=== PATIENT | female | born 1945 | race Caucasian/White ===

== ENCOUNTER 2017-04-23 05:18 | Inpatient (IN) | payer MEDICARE, BC ==
[2017-04-23] MEDS ORDERED: Scopolamine 1.5 MG Transdermal Patch TOP SCH (05:40)
[2017-04-23] MEDS ORDERED: Gabapentin 300 MG Cap PO ONE (05:40)
[2017-04-23] MEDS: Lactated Ringers 1,000 ML IV SCH (06:16)
[2017-04-23] MEDS ORDERED: Povidone-Iodine 10% Soln 118.25 ML Bottle ONE (06:47)
[2017-04-23] MEDS ORDERED: Thrombin (Bovine) 5,000 Unit Kit ONE (06:47)
[2017-04-23] MEDS ORDERED: Glycopyrrolate 0.2 MG/ML 5 ML MDV ONE (07:16)
[2017-04-23] MEDS ORDERED: Neostigmine Methylsulfate 1 MG/ML 5 ML Syringe ONE (07:16)
[2017-04-23] MEDS ORDERED: Dexamethasone 4 MG/ML SDV ONE (07:16)
[2017-04-23] MEDS ORDERED: Ondansetron 4 MG/2 ML SDV ONE (07:16)
[2017-04-23] MEDS ORDERED: Succinylcholine 200 MG/10 ML MDV ONE (07:16)
[2017-04-23] MEDS ORDERED: Rocuronium 50 MG/5 ML Vial ONE (07:16)
[2017-04-23] MEDS ORDERED: ceFAZolin 2 GM in Sodium Chloride 0.9% 50 ML IV ONE (07:30)
[2017-04-23] MEDS ORDERED: ceFAZolin 2 GM in Premix Bag 1 BAG IV ONE (07:30)
[2017-04-23] MEDS ORDERED: Ketamine 500 MG/5 ML MDV IV ONE (07:45)
[2017-04-23] MEDS ORDERED: Ropivacaine 49.25 ML, Ketorolac 30 MG, EPINEPHrine 0.5 MG, cloNIDine 80 MCG, Sodium Chl... INJECT ONE ×5 (07:45)
[2017-04-23] MEDS ORDERED: Tranexamic Acid 740 MG in Sodium Chloride 0.9% 50 ML IV SCH (07:45)
[2017-04-23] MEDS ORDERED: Hydrocortisone Sodium Succinate 100 MG/2 ML SDV ONE (08:07)
[2017-04-23] MEDS ORDERED: Vancomycin 1 GM SDV ONE (08:35)
[2017-04-23] MEDS ORDERED: fentaNYL 100 MCG/2 ML SDV ONE (09:33)
[2017-04-23] MEDS ORDERED: Ondansetron 4 MG/2 ML SDV IVPUSH PRN (10:03)
[2017-04-23] MEDS ORDERED: Diazepam 5 MG Tab PO PRN (10:03)
[2017-04-23] MEDS ORDERED: Sennosides 8.6 MG Tab PO PRN (10:03)
[2017-04-23] MEDS ORDERED: Magnesium Hydroxide 400 MG/5 ML Susp 30 ML Cup PO PRN (10:03)
[2017-04-23] MEDS ORDERED: Zolpidem 5 MG Tab PO PRN (10:03)
[2017-04-23] MEDS ORDERED: Naloxone 0.4 MG/ML SDV IVPUSH PRN (10:03)
[2017-04-23] MEDS ORDERED: Aluminum Hydroxide/Magnesium Hydroxide/Simethicone Susp 30 ML Cup PO PRN (10:03)
[2017-04-23] MEDS ORDERED: hydrOXYzine HCl 100 MG/2 ML SDV IM ONE (10:09)
[2017-04-23] MEDS ORDERED: ceFAZolin 1 GM in Sodium Chloride 0.9% 50 ML IV SCH (10:15)
[2017-04-23] MEDS ORDERED: Acetaminophen 1,000 MG in Premix Bag 1 BAG IV ONE (10:30)
[2017-04-23] MEDS ORDERED: fentaNYL 100 MCG/2 ML SDV IVPUSH ONE (10:53)
[2017-04-23] MEDS ORDERED: Methocarbamol 500 MG Tab PO PRN ×2 (12:27→15:50)
[2017-04-23] MEDS: HYDROmorphone 1 MG/ML Syringe IVPUSH PRN ×2 (13:07→20:06)
[2017-04-23] MEDS: VERIFY SCOPOLAMINE PATCH TOP SCH (13:37)
--- NOTE | 2017-04-23 14:10 | PCM.PN ---
- General Info Date of Service: 04/23/17 - Review of Systems General: Reports: Weakness Musculoskeletal: Reports: Back Pain Systems Review Comment:: No acute events since surgery but patient remains fairly sedated. Occasional desaturations with shallow and infrequent breaths but does well when she is awakened. She reports moderate achy back pain that is tolerable at this time. No paresthesias reported. She does not feel short of breath at this time. Mouth is reported as very dry. - Patient Data Vitals - Most Recent: Last Vital Signs Temp 37.5 C 04/23/17 13:15 Pulse 67 04/23/17 13:15 Resp 16 04/23/17 13:15 BP 120/42 L 04/23/17 13:15 Pulse Ox 90 L 04/23/17 13:15 Weight - Most Recent: 73.482 kg I&O - Last 24 Hours: Intake & Output 04/22/17 04/23/17 04/23/17 22:59 06:59 14:59 Intake Total 75 Output Total 200 Balance -125 Lab Results Last 24 Hours: Laboratory Results - last 24 hr 04/23/17 Range/Units 05:53 Blood Type A POSITIVE Gel Antibody Screen Negative Med Orders - Current: Current Medications Al Hydroxide/Mg Hydroxide (Mag-Al Plus) 30 ml PO Q4H PRN PRN Reason: Indigestion Aspirin (Halfprin) 81 mg PO DAILY RON Atenolol (Tenormin) 25 mg PO DAILY RON Cholecalciferol (Vitamin D3) 1,000 units PO DAILY RON Diazepam (Valium.) 5 mg PO Q6H PRN PRN Reason: Spasms Fish Oil (Fish Oil) 1 gm PO BID RON Fluoxetine HCl (Prozac) 10 mg PO DAILY RON Gabapentin (Neurontin) 600 mg PO DAILY RON Hydromorphone HCl (Dilaudid) 1 mg IVPUSH Q2H PRN PRN Reason: Pain Stop: 04/24/17 10:03 Last Admin: 04/23/17 13:07 Dose: 1 mg Lactated Ringer's (Ringers, Lactated) 1,000 mls @ 0 mls/hr IV ASDIRECTED RON PRN Reason: KVO Last Admin: 04/23/17 06:16 Dose: 100 mls/hr Cefazolin Sodium/Dextrose 1 gm (/ Premix) 50 mls @ 100 mls/hr IV Q8H RON Stop: 04/24/17 06:59 Magnesium Hydroxide (Milk Of Magnesia) 30 ml PO BID PRN PRN Reason: Constipation Methocarbamol (Robaxin) 500 mg PO ASDIRECTED PRN PRN Reason: Pain Naloxone HCl (Narcan) 0.2 mg IVPUSH ONETIME PRN PRN Reason: Oversedation Stop: 04/23/17 23:00 Verify Scopolamine (Patch) 0 each TOP DAILY [facility] Last Admin: 04/23/17 13:37 Dose: Not Given Ondansetron HCl (Zofran) 8 mg IVPUSH Q4H PRN PRN Reason: Nausea/Vomiting Oxycodone HCl (Oxycodone) 10 mg PO Q4H PRN PRN Reason: Pain Stop: 04/24/17 10:03 Oxycodone/Acetaminophen (Percocet 325-5 Mg) 2 tab PO Q4H PRN PRN Reason: Pain Pantoprazole Sodium (Protonix) 40 mg PO ACBREAKFAST [facility] Rosuvastatin Calcium (Crestor) 20 mg PO BEDTIME RON Scopolamine (Transderm-Scop) 1.5 mg TOP Q72H [facility] Stop: 04/26/17 03:40 Last Admin: 04/23/17 05:59 Dose: 1.5 mg Senna (Senna) 8.6 mg PO BID [facility] Valacyclovir HCl (Valtrex) 500 mg PO DAILY [facility] Zolpidem Tartrate (Ambien) 5 mg PO BEDTIME PRN PRN Reason: Sleep Discontinued Medications Ropivacaine 49.25 ml/Ketorolac Tromethamine 30 mg/Epinephrine HCl 0.5 mg/ Clonidine HCl 80 mcg/ Sodium Chloride 48.45 ml 0 ml INJECT ONETIME ONE Stop: 04/23/17 07:46 Last Admin: 04/23/17 08:24 Dose: 50 ml Dexamethasone (Dexamethasone) Confirm Administered Dose 4 mg .ROUTE .STK-MED ONE Stop: 04/23/17 07:17 Fentanyl (Sublimaze) Confirm Administered Dose 100 mcg .ROUTE .STK-MED ONE Stop: 04/23/17 09:34 Fentanyl (Sublimaze) 50 mcg IVPUSH ONETIME ONE Stop: 04/23/17 10:54 Last Admin: 04/23/17 10:56 Dose: 50 mcg Fentanyl Citrate (Fentanyl) Confirm Administered Dose 500 mcg .ROUTE .STK-MED ONE Stop: 04/23/17 07:17 Gabapentin (Neurontin) 300 mg PO ONETIME ONE Stop: 04/23/17 05:41 Last Admin: 04/23/17 05:58 Dose: 300 mg Glycopyrrolate (Robinul) Confirm Administered Dose 1 mg .ROUTE .STK-MED ONE Stop: 04/23/17 07:17 Hydrocortisone Sodium Succinate (Solu-Cortef) Confirm Administered Dose 100 mg .ROUTE .STK-MED ONE Stop: 04/23/17 08:08 Hydroxyzine HCl (Vistaril) 75 mg IM ONETIME ONE Stop: 04/23/17 10:10 Last Admin: 04/23/17 10:17 Dose: 75 mg Tranexamic Acid 740 mg/ Sodium (Chloride) 57.4 mls @ 229.6 mls/hr IV Q3H [facility] Stop: 04/23/17 10:59 Last Admin: 04/23/17 07:55 Dose: 229.6 mls/hr Ketamine HCl 100 mg/ Sodium (Chloride) 100 mls @ 15 mls/hr IV ASDIRECTED [facility] Stop: 04/23/17 10:00 Cefazolin Sodium 2 gm/ Sodium (Chloride) 50 mls @ 100 mls/hr IV ONETIME ONE Stop: 04/23/17 07:59 Last Admin: 04/23/17 07:15 Dose: 100 mls/hr Propofol (Diprivan 100 Ml) Confirm Administered Dose 100 mls @ as directed .ROUTE .STK-MED ONE Stop: 04/23/17 07:17 Acetaminophen 1,000 mg/ Premix 100 mls @ 400 mls/hr IV NOW ONE Stop: 04/23/17 10:44 Last Admin: 04/23/17 10:32 Dose: 400 mls/hr Cefazolin Sodium 1 gm/ Sodium (Chloride) 50 mls @ 100 mls/hr IV Q8H [facility] Stop: 04/24/17 02:44 Ketamine HCl (Ketalar) 25 mg IV ONETIME ONE Stop: 04/23/17 07:46 Last Admin: 04/23/17 12:18 Dose: Not Given Neostigmine Methylsulfate (Neostigmine) Confirm Administered Dose 5 mg .ROUTE .STK-MED ONE Stop: 04/23/17 07:17 Ondansetron HCl (Zofran) Confirm Administered Dose 4 mg .ROUTE .STK-MED ONE Stop: 04/23/17 07:17 Povidone Iodine (Betadine 10% Soln) Confirm Administered Dose 1 ml .ROUTE .STK- MED ONE Stop: 04/23/17 06:48 Last Admin: 04/23/17 08:17 Dose: 1 ml Rocuronium [place] (Zemuron) Confirm Administered Dose 50 mg .ROUTE .STK-MED ONE Stop: 04/23/17 07:17 Senna (Senna) 8.6 mg PO BID PRN PRN Reason: Constipation Succinylcholine Chloride (Quelicin) Confirm Administered Dose 200 mg .ROUTE .STK -MED ONE Stop: 04/23/17 07:17 Thrombin (Thrombin-Jmi) Confirm Administered Dose 15,000 unit .ROUTE .STK-MED ONE Stop: 04/23/17 06:48 Last Admin: 04/23/17 08:17 Dose: 10,000 unit Vancomycin HCl (Vancomycin) Confirm Administered Dose 1 gm .ROUTE .STK-MED ONE Stop: 04/23/17 08:36 Last Admin: 04/23/17 08:38 Dose: 1 gm - Exam Quality Assessment: Supplemental Oxygen General: Alert, Cooperative, No Acute Distress, Sedated Lungs: Clear to Auscultation, Normal Respiratory Effort Cardiovascular: Regular Rate, Regular Rhythm, Murmurs GI/Abdominal Exam: Normal Bowel Sounds, Soft, Non-Tender, No Distention Extremities: No Pedal Edema. No: Increased Warmth Skin: Warm, Dry Psy/Mental Status: Alert, Normal Affect - Problem List & Annotations (1) Spondylolisthesis at L4-L5 level SNOMED Code(s): 278553595 Code(s): M43.16 - SPONDYLOLISTHESIS, LUMBAR REGION Status: Acute Current Visit: No (2) Spinal stenosis of lumbar region with neurogenic claudication SNOMED Code(s): 19008957 Code(s): M48.062 - SPINAL STENOSIS, LUMBAR REGION WITH NEUROGENIC CLAUDICATION Status: Acute Current Visit: No (3) Essential hypertension SNOMED Code(s): 95158856 Code(s): I10 - ESSENTIAL (PRIMARY) HYPERTENSION Status: Chronic Current Visit: Yes - Problem List Review Problem List Initiated/Reviewed/Updated: Yes - Plan Plan:: ASSESSMENT AND PLAN Spinal stenosis with neurogenic claudication - status post TLIF at L4/L5. Doing well postoperatively other than some sedation. -Postoperative cares per orthopedic team Essential hypertension - blood pressure control acceptable at this time. -Continue home medications Jt Ball M.D.
[2017-04-23] MEDS: ceFAZolin 1 GM in Premix Bag 1 BAG IV SCH ×2 (15:24→22:37)
--- NOTE | 2017-04-23 15:44 | OR ---
DATE OF PROCEDURE: 04/23/2017 PREOPERATIVE DIAGNOSES: 1. Lumbar spondylolisthesis, L4-L5. 2. Lumbar central stenosis, L4-L5. 3. Lumbar right foraminal stenosis, L4-L5. 4. Lumbar radiculopathy, L4-L5. POSTOPERATIVE DIAGNOSES: 1. Lumbar spondylolisthesis, L4-L5. 2. Lumbar central stenosis, L4-L5. 3. Lumbar right foraminal stenosis, L4-L5. 4. Lumbar radiculopathy, L4-L5. PROCEDURES: 1. Transforaminal lumbar interbody fusion with posterolateral fusion, L4-L5. 2. Interbody device placement, L4-L5. 3. Laminectomy, required an additional decompression at L4-L5. 4. Segmental instrumentation, L4-L5. 5. Use of Globus Signify allograft in combination with an autograft from laminectomy applied to right posterolateral gutter and right facet. COAL DRIER OPERATOR: COLEMAN Torres. Physician perinatal breastfeeding assistant, Carleen Edwards NP, played an essential role in assisting in this case, helping to position the patient, retract structures as needed, as well as suturing and cutting sutures as indicated. Her presence improved patient's safety and decreased operative time. ANESTHESIA: General endotracheal intubation. FLUID: Lactated Ringer's solution. ESTIMATED BLOOD LOSS: 50 mL. COMPLICATIONS: None. SPECIMEN: None. DISCHARGE DISPOSITION: Stable to PACU. INDICATIONS: The patient was seen preoperatively in the clinic. She had failed nonoperative treatment. Preoperative imaging confirmed the above-mentioned diagnosis. Risks and benefits of the procedure were explained to the patient. Informed consent was obtained. DETAILS OF PROCEDURE: The patient was seen preoperatively by myself and the Anesthesia staff in the preoperative holding area where the operative site was marked. She was brought to the operative suite by the Anesthesia staff where general anesthesia was administered. Neuromonitoring leads were placed and normal at baseline. A sterile Chairez catheter was placed. The operating microscope was draped in a sterile manner. The fluoroscopy unit was draped in a sterile manner. The patient was then prepped and draped and was then flipped into a prone position on a Yonny table. All extremities were found to be well padded. The patient was then prepped and draped in a sterile manner. Time-out was called identifying the correct patient, correct procedure, the correct site, and antibiotics had begun within the appropriate period of time. Lateral fluoroscopy was used to identify the pedicles of L4 and L5. Midline incision was made over the spinous processes of L4 and L5 and carried down to the deep fascia. Bleeding during the case was controlled with Bovie electrocautery, bipolar electrocautery, and Aquamantys 5.0 unit. Cerebellar was used for initial retraction. Dissection was then carried out with Bovie and Pineda elevator over the spinous processes, facets, pars, and transverse processes of L4 and L5. Versa-Trac blades were then inserted for retraction. Soft tissue was then removed. Right L4 and L5 screws were placed followed by left. This was done by decorticating the lateral aspect of the facet and then at the midline of the transverse process, drilling down to find the pedicle starting point followed by PediGuard to find the tract, followed by fluoroscopy, followed by pedicle probe placement, followed by a tap, followed by pedicle probe placement to confirm good placement followed by screws. All screws were 6.5 x 45 mm Globus Creo AMP. The left side was done followed by right side. We then tested the screws. One screw tested 16, the remainder tested about 21, all within acceptable limits. I then proceeded with my right inferior facetectomy of L4 and then superior facetectomy of L5 on the right. I then removed enough flavum. I did identify the exiting L4 root, which was protected at all times with a Graford #4 elevator. I found the disk space and then incised the annulus with a 15 blade followed by removal of the disk with pituitary straight and upgoing and downgoing curettes as well as upgoing pituitary for disk space preparation and endplate preparation. After this had been accomplished, I then inserted my bone funnel and applied approximately 5 mL of Signify anteriorly. I then inserted my implant which was a Rise 8 x 22, 11 to 17 mm, 15 degree lordotic implant and then expanded this under direct visualization of fluoroscopy. After this had been accomplished and torqued out, I then concentrated on my laminectomy. I removed the inferior spinous process of L4 and the superior spinous process of L5. The laminectomy defect from previous surgeries had been overgrown, so we took a great deal of care not to create a durotomy. No durotomy was encountered during the procedure. The dura was protected with cottonoid. I removed bone from that area to perform the laminectomy and then carefully removed the ligamentum flavum to decompress. After adequate decompression had been accomplished, I then applied a 35 mm annie on the left and 40 mm annie on the right and then set screws and torqued into specifications. We then irrigated with 3 L Betadine irrigation. I then decorticated the transverse processes on the left at L4 and L5 as well as decorticated the facets and packed a mixture of the Signify allograft as well as autograft from laminectomy which had been ground through [employer] bone mill into the facet as well as the posterolateral gutter on the left. After this had been accomplished, I applied half a gram of vancomycin below and above the fascia as well as Gelfoam powder. We then closed with #1 Stratafix, followed by another liter of irrigation, followed by #6 Stratafix, and then 3-0 Stratafix followed by sterile dressing. The patient was then flipped into her hospital bed in supine position. Neuromonitoring leads were placed and they were normal throughout the procedure. The patient was allowed to awaken from general anesthesia and taken to the PACU in stable condition. Evens Graham DO /[id number]
[2017-04-23] MEDS: Sennosides 8.6 MG Tab PO SCH (20:26)
[2017-04-23] MEDS: Rosuvastatin 10 MG Tab PO SCH (20:26)
[2017-04-23] MEDS: Fish Oil/Omega-3 Fatty Acids 1 Gm Cap PO SCH (20:36)
[2017-04-23] MEDS ORDERED: Non-Formulary Medication 1 Each (Omeprazole [Omeprazole] 20 MG) PO SCH (21:00)
[2017-04-23] MEDS ORDERED: Non-Formulary Medication 1 Each (Rosuvastatin [Crestor] 20 MG) PO SCH (21:00)
[2017-04-24] MEDS: oxyCODONE 5 MG Tab PO PRN ×2 (03:10→08:32)
[2017-04-24] MEDS: Lactated Ringers 1,000 ML IV SCH (04:02)
[2017-04-24] MEDS: ceFAZolin 1 GM in Premix Bag 1 BAG IV SCH (06:46)
[2017-04-24] MEDS: Pantoprazole 40 MG Tab.CR PO SCH (08:31)
[2017-04-24] MEDS ORDERED: Non-Formulary Medication 1 Each (Cholecalciferol (Vitamin D3) [Vitamin D3] 1,000 UNIT) PO SCH (09:00)
[2017-04-24] MEDS ORDERED: Non-Formulary Medication 1 Each (Gabapentin [Neurontin] 600 MG) PO SCH (09:00)
--- NOTE | 2017-04-24 10:37 | PCM.PN ---
- General Info Date of Service: 04/24/17 Functional Status: Reports: Pain Controlled - Review of Systems General: Reports: No Symptoms HEENT: Reports: No Symptoms Pulmonary: Reports: No Symptoms Cardiovascular: Reports: No Symptoms Gastrointestinal: Reports: No Symptoms, Nausea Musculoskeletal: Reports: Back Pain Skin: Reports: No Symptoms Neurological: Reports: No Symptoms Psychiatric: Reports: No Symptoms - Patient Data Vitals - Most Recent: Last Vital Signs Temp 97.8 F 04/24/17 07:42 Pulse 68 04/24/17 07:42 Resp 16 04/24/17 07:42 BP 134/46 L 04/24/17 07:42 Pulse Ox 97 04/24/17 07:42 Weight - Most Recent: 162 lb I&O - Last 24 Hours: Intake & Output 04/23/17 04/24/17 04/24/17 22:59 06:59 14:59 Intake Total 335 265 3538 Output Total 815 1250 Balance -348 360 158 Med Orders - Current: Current Medications Al Hydroxide/Mg Hydroxide (Mag-Al Plus) 30 ml PO Q4H PRN PRN Reason: Indigestion Aspirin (Halfprin) 81 mg PO DAILY [facility] Atenolol (Tenormin) 25 mg PO DAILY [facility] Cholecalciferol (Vitamin D3) 1,000 units PO DAILY RON Diazepam (Valium.) 5 mg PO Q6H PRN PRN Reason: Spasms Fish Oil (Fish Oil) 1 gm PO BID [facility] Last Admin: 04/23/17 20:36 Dose: Not Given Fluoxetine HCl (Prozac) 10 mg PO DAILY [facility] Gabapentin (Neurontin) 600 mg PO DAILY [facility] Lactated Ringer's (Ringers, Lactated) 1,000 mls @ 0 mls/hr IV ASDIRECTED RON PRN Reason: KVO Last Admin: 04/24/17 04:02 Dose: 100 mls/hr Magnesium Hydroxide (Milk Of Magnesia) 30 ml PO BID PRN PRN Reason: Constipation Methocarbamol (Robaxin) 1,000 mg PO BEDTIME PRN PRN Reason: Pain Verify Scopolamine (Patch) 0 each TOP DAILY [facility] Last Admin: 04/23/17 13:37 Dose: Not Given Ondansetron HCl (Zofran) 8 mg IVPUSH Q4H PRN PRN Reason: Nausea/Vomiting Oxycodone/Acetaminophen (Percocet 325-5 Mg) 2 tab PO Q4H PRN PRN Reason: Pain Pantoprazole Sodium (Protonix) 40 mg PO ACBREAKFAST [facility] Last Admin: 04/24/17 08:31 Dose: 40 mg Rosuvastatin Calcium (Crestor) 20 mg PO BEDTIME [facility] Last Admin: 04/23/17 20:26 Dose: 20 mg Scopolamine (Transderm-Scop) 1.5 mg TOP Q72H [facility] Stop: 04/26/17 03:40 Last Admin: 04/23/17 05:59 Dose: 1.5 mg Senna (Senna) 8.6 mg PO BID [facility] Last Admin: 04/23/17 20:26 Dose: 8.6 mg Valacyclovir HCl (Valtrex) 500 mg PO DAILY [facility] Zolpidem Tartrate (Ambien) 5 mg PO BEDTIME PRN PRN Reason: Sleep Discontinued Medications Ropivacaine 49.25 ml/Ketorolac Tromethamine 30 mg/Epinephrine HCl 0.5 mg/ Clonidine HCl 80 mcg/ Sodium Chloride 48.45 ml 0 ml INJECT ONETIME ONE Stop: 04/23/17 07:46 Last Admin: 04/23/17 08:24 Dose: 50 ml Dexamethasone (Dexamethasone) Confirm Administered Dose 4 mg .ROUTE .STK-MED ONE Stop: 04/23/17 07:17 Fentanyl (Sublimaze) Confirm Administered Dose 100 mcg .ROUTE .STK-MED ONE Stop: 04/23/17 09:34 Fentanyl (Sublimaze) 50 mcg IVPUSH ONETIME ONE Stop: 04/23/17 10:54 Last Admin: 04/23/17 10:56 Dose: 50 mcg Fentanyl Citrate (Fentanyl) Confirm Administered Dose 500 mcg .ROUTE .STK-MED ONE Stop: 04/23/17 07:17 Gabapentin (Neurontin) 300 mg PO ONETIME ONE Stop: 04/23/17 05:41 Last Admin: 04/23/17 05:58 Dose: 300 mg Glycopyrrolate (Robinul) Confirm Administered Dose 1 mg .ROUTE .STK-MED ONE Stop: 04/23/17 07:17 Hydrocortisone Sodium Succinate (Solu-Cortef) Confirm Administered Dose 100 mg .ROUTE .STK-MED ONE Stop: 04/23/17 08:08 Hydromorphone HCl (Dilaudid) 1 mg IVPUSH Q2H PRN PRN Reason: Pain Stop: 04/24/17 10:03 Last Admin: 04/23/17 20:06 Dose: 1 mg Hydroxyzine HCl (Vistaril) 75 mg IM ONETIME ONE Stop: 04/23/17 10:10 Last Admin: 04/23/17 10:17 Dose: 75 mg Tranexamic Acid 740 mg/ Sodium (Chloride) 57.4 mls @ 229.6 mls/hr IV Q3H [facility] Stop: 04/23/17 10:59 Last Admin: 04/23/17 07:55 Dose: 229.6 mls/hr Ketamine HCl 100 mg/ Sodium (Chloride) 100 mls @ 15 mls/hr IV ASDIRECTED [facility] Stop: 04/23/17 10:00 Cefazolin Sodium 2 gm/ Sodium (Chloride) 50 mls @ 100 mls/hr IV ONETIME ONE Stop: 04/23/17 07:59 Last Admin: 04/23/17 07:15 Dose: 100 mls/hr Propofol (Diprivan 100 Ml) Confirm Administered Dose 100 mls @ as directed .ROUTE .STK-MED ONE Stop: 04/23/17 07:17 Acetaminophen 1,000 mg/ Premix 100 mls @ 400 mls/hr IV NOW ONE Stop: 04/23/17 10:44 Last Admin: 04/23/17 10:32 Dose: 400 mls/hr Cefazolin Sodium 1 gm/ Sodium (Chloride) 50 mls @ 100 mls/hr IV Q8H [facility] Stop: 04/24/17 02:44 Last Admin: 04/23/17 16:31 Dose: Not Given Cefazolin Sodium/Dextrose 1 gm (/ Premix) 50 mls @ 100 mls/hr IV Q8H [facility] Stop: 04/24/17 06:59 Last Admin: 04/24/17 06:46 Dose: 100 mls/hr Ketamine HCl (Ketalar) 25 mg IV ONETIME ONE Stop: 04/23/17 07:46 Last Admin: 04/23/17 12:18 Dose: Not Given Naloxone HCl (Narcan) 0.2 mg IVPUSH ONETIME PRN PRN Reason: Oversedation Stop: 04/23/17 23:00 Neostigmine Methylsulfate (Neostigmine) Confirm Administered Dose 5 mg .ROUTE .STK-MED ONE Stop: 04/23/17 07:17 Ondansetron HCl (Zofran) Confirm Administered Dose 4 mg .ROUTE .STK-MED ONE Stop: 04/23/17 07:17 Oxycodone HCl (Oxycodone) 10 mg PO Q4H PRN PRN Reason: Pain Stop: 04/24/17 10:03 Last Admin: 04/24/17 08:32 Dose: 10 mg Povidone Iodine (Betadine 10% Soln) Confirm Administered Dose 1 ml .ROUTE .STK- MED ONE Stop: 04/23/17 06:48 Last Admin: 04/23/17 08:17 Dose: 1 ml Rocuronium [place] (Zemuron) Confirm Administered Dose 50 mg .ROUTE .STK-MED ONE Stop: 04/23/17 07:17 Senna (Senna) 8.6 mg PO BID PRN PRN Reason: Constipation Succinylcholine Chloride (Quelicin) Confirm Administered Dose 200 mg .ROUTE .STK -MED ONE Stop: 04/23/17 07:17 Thrombin (Thrombin-Jmi) Confirm Administered Dose 15,000 unit .ROUTE .STK-MED ONE Stop: 04/23/17 06:48 Last Admin: 04/23/17 08:17 Dose: 10,000 unit Vancomycin HCl (Vancomycin) Confirm Administered Dose 1 gm .ROUTE .STK-MED ONE Stop: 04/23/17 08:36 Last Admin: 04/23/17 08:38 Dose: 1 gm - Exam General: Alert, Oriented HEENT: Pupils Equal, Pupils Reactive, EOMI, Mucous Membr. Moist/[place] Neck: Supple Lungs: Normal Respiratory Effort Skin: Warm, Dry, Intact Wound/Incisions: Healing Well, Dressing Dry and Intact, No Drainage Neurological: No New Focal Deficit Psy/Mental Status: Alert, Normal Affect, Normal Mood - Problem List Review Problem List Initiated/Reviewed/Updated: Yes - My Orders Last 24 Hours: My Active Orders 04/23/17 10:00 Non-Formulary Medication [NF Drug] 0 each TOP DAILY - Plan Plan:: A: POD TLIF L4-5 P: pt/ot/pain control. walked 50' this am. will most likely dc to home tomorrow. rx for walker written.
[2017-04-24] MEDS: FLUoxetine 10 MG Cap PO SCH (11:10)
[2017-04-24] MEDS: Fish Oil/Omega-3 Fatty Acids 1 Gm Cap PO SCH ×3 (11:10→22:08)
[2017-04-24] MEDS: Gabapentin 300 MG Cap PO SCH (11:10)
[2017-04-24] MEDS: Atenolol 25 MG Tab PO SCH (11:11)
[2017-04-24] MEDS: Aspirin 81 MG Tab.EC PO SCH (11:11)
[2017-04-24] MEDS: Sennosides 8.6 MG Tab PO SCH ×2 (11:12→20:49)
[2017-04-24] MEDS: Cholecalciferol (Vitamin D3) 1,000 Unit Tab PO SCH (11:12)
[2017-04-24] MEDS: valACYclovir 1,000 MG Tab PO SCH (11:22)
[2017-04-24] MEDS: VERIFY SCOPOLAMINE PATCH TOP SCH (12:22)
[2017-04-24] MEDS: Acetaminophen/oxyCODONE 325-5 MG Tab PO PRN ×3 (14:04→23:02)
[2017-04-24] MEDS: Rosuvastatin 10 MG Tab PO SCH (20:48)
[2017-04-25] MEDS ORDERED: Acetaminophen/oxyCODONE 325-5 MG Tab PO SCH
[2017-04-25] MEDS: Acetaminophen/oxyCODONE 325-5 MG Tab PO PRN ×4 (03:55→17:03)
--- NOTE | 2017-04-25 08:00 | PCM.DCSUM1 ---
Discharge Summary - Hospital Course Free Text/Narrative:: Patient is status pod 3 of a lumbar fusion. She is doing well. Her pain is under control with oral pain medication. She is ambulating with a walker. She continue to with PT/OT - Discharge Data Discharge Date: 04/25/17 Discharge Disposition: Home, Self-Care 01 Condition: Good - Patient Summary/Data Consults: Consultations 04/23/17 10:03 OT Evaluation and Treatment [CONS] Routine Please Evaluate and Treat. OT Reason for Consult: Strengthening This query below is only for informational purposes and is not editable. PT Evaluation and Treatment [CONS] Routine Please Evaluate and Treat. PT Reason for Consult: Strengthening This query below is only for informational purposes and is not editable. 04/23/17 12:33 Consult to Physician [CONS] Routine Consulting Provider: Jt Ball Call Completed to Consulting Physician: Yes - Patient Instructions Diet: Usual Diet as Tolerated Activity: Apply Ice, As Tolerated Driving: Do Not Drive Showering/Bathing: May Shower, No Tub Bathing/Swimming Wound/Incision Care: Keep Operative Site/Wound Site Clean and Dry, Change Dressing Daily Notify Provider of: Fever, Increased Pain, Swelling and Redness, Drainage, Nausea and/or Vomiting - Discharge Plan Prescriptions/Med Rec: Acetaminophen/oxyCODONE [Percocet 325-5 MG] 1 tab PO Q6HR #90 tablet Sennosides [Senna] 8.6 mg PO BID #30 tablet Home Medications: Home Meds Atenolol 25 mg PO DAILY 02/14/17 [History] Gabapentin [Neurontin] 600 mg PO DAILY 02/14/17 [History] Hydrocodone/Acetaminophen [Hydrocodon-Acetaminoph 7.5-325] 1 tab PO Q6HR PRN [History] Methocarbamol [Robaxin] 1,000 mg PO BEDTIME PRN 02/14/17 [History] Omeprazole 20 mg PO BID 02/14/17 [History] valACYclovir HCl [Valacyclovir] 500 mg PO DAILY 02/14/17 [History] Aspirin [Halfprin] 81 mg PO DAILY 04/22/17 [History] Cholecalciferol (Vitamin D3) [Vitamin D3] 1,000 unit PO DAILY 04/22/17 [History] FLUoxetine [PROzac] 10 mg PO DAILY 04/22/17 [History] Fish Oil/[place]-3 Fatty Acids [Fish Oil 1,000 MG] 1 cap PO BID 04/22/17 [History] Rosuvastatin [Crestor] 20 mg PO BEDTIME 04/22/17 [History] Acetaminophen/oxyCODONE [Percocet 325-5 MG] 1 tab PO Q6HR #90 tablet 04/25/17 [ Rx] Sennosides [Senna] 8.6 mg PO BID #30 tablet 04/25/17 [Rx] Patient Handouts: Spinal Fusion, Care After, [id number], Preventing Constipation After Surgery Referrals: Carleen Edwards [facility] [Nurse Practitioner] - 05/23/17 12:30 pm - Patient Data Vitals - Most Recent: Last Vital Signs Temp 36.6 C 04/25/17 07:18 Pulse 70 04/25/17 07:18 Resp 17 04/25/17 07:18 BP 135/50 L 04/25/17 07:18 Pulse Ox 94 L 04/25/17 07:18 Weight - Most Recent: 162 lb 0.001 oz I&O - Last 24 hours: Intake & Output 04/24/17 04/25/17 04/25/17 22:59 06:59 14:59 Intake Total 860 Output Total 5591 710 5910 Balance -440 -500 -1200 Med Orders - Current: Current Medications Al Hydroxide/Mg Hydroxide (Mag-Al Plus) 30 ml PO Q4H PRN PRN Reason: Indigestion Aspirin (Halfprin) 81 mg PO DAILY [facility] Last Admin: 04/24/17 11:11 Dose: 81 mg Atenolol (Tenormin) 25 mg PO DAILY [facility] Last Admin: 04/24/17 11:11 Dose: 25 mg Cholecalciferol (Vitamin D3) 1,000 units PO DAILY [facility] Last Admin: 04/24/17 11:12 Dose: 1,000 units Diazepam (Valium.) 5 mg PO Q6H PRN PRN Reason: Spasms Last Admin: 04/24/17 19:49 Dose: 5 mg Fish Oil (Fish Oil) 1 gm PO BID [facility] Last Admin: 04/24/17 22:08 Dose: Not Given Fluoxetine HCl (Prozac) 10 mg PO DAILY [facility] Last Admin: 04/24/17 11:10 Dose: 10 mg Gabapentin (Neurontin) 600 mg PO DAILY [facility] Last Admin: 04/24/17 11:10 Dose: 600 mg Lactated Ringer's (Ringers, Lactated) 1,000 mls @ 0 mls/hr IV ASDIRECTED [facility] PRN Reason: KVO Last Admin: 04/24/17 04:02 Dose: 100 mls/hr Magnesium Hydroxide (Milk Of Magnesia) 30 ml PO BID PRN PRN Reason: Constipation Methocarbamol (Robaxin) 1,000 mg PO BEDTIME PRN PRN Reason: Pain Last Admin: 04/24/17 20:55 Dose: 1,000 mg Verify Scopolamine (Patch) 0 each TOP DAILY [facility] Last Admin: 04/24/17 12:22 Dose: Not Given Ondansetron HCl (Zofran) 8 mg IVPUSH Q4H PRN PRN Reason: Nausea/Vomiting Oxycodone/Acetaminophen (Percocet 325-5 Mg) 2 tab PO Q4H PRN PRN Reason: Pain Last Admin: 04/25/17 03:55 Dose: 2 tab Pantoprazole Sodium (Protonix) 40 mg PO ACBREAKFAST [facility] Last Admin: 04/24/17 08:31 Dose: 40 mg Rosuvastatin Calcium (Crestor) 20 mg PO BEDTIME [facility] Last Admin: 04/24/17 20:48 Dose: 20 mg Scopolamine (Transderm-Scop) 1.5 mg TOP Q72H [facility] Stop: 04/26/17 03:40 Last Admin: 04/23/17 05:59 Dose: 1.5 mg Senna (Senna) 8.6 mg PO BID [facility] Last Admin: 04/24/17 20:49 Dose: 8.6 mg Valacyclovir HCl (Valtrex) 500 mg PO DAILY [facility] Last Admin: 04/24/17 11:22 Dose: 500 mg Zolpidem Tartrate (Ambien) 5 mg PO BEDTIME PRN PRN Reason: Sleep Discontinued Medications Ropivacaine 49.25 ml/Ketorolac Tromethamine 30 mg/Epinephrine HCl 0.5 mg/ Clonidine HCl 80 mcg/ Sodium Chloride 48.45 ml 0 ml INJECT ONETIME ONE Stop: 04/23/17 07:46 Last Admin: 04/23/17 08:24 Dose: 50 ml Dexamethasone (Dexamethasone) Confirm Administered Dose 4 mg .ROUTE .STK-MED ONE Stop: 04/23/17 07:17 Fentanyl (Sublimaze) Confirm Administered Dose 100 mcg .ROUTE .STK-MED ONE Stop: 04/23/17 09:34 Fentanyl (Sublimaze) 50 mcg IVPUSH ONETIME ONE Stop: 04/23/17 10:54 Last Admin: 04/23/17 10:56 Dose: 50 mcg Fentanyl Citrate (Fentanyl) Confirm Administered Dose 500 mcg .ROUTE .STK-MED ONE Stop: 04/23/17 07:17 Gabapentin (Neurontin) 300 mg PO ONETIME ONE Stop: 04/23/17 05:41 Last Admin: 04/23/17 05:58 Dose: 300 mg Glycopyrrolate (Robinul) Confirm Administered Dose 1 mg .ROUTE .STK-MED ONE Stop: 04/23/17 07:17 Hydrocortisone Sodium Succinate (Solu-Cortef) Confirm Administered Dose 100 mg .ROUTE .STK-MED ONE Stop: 04/23/17 08:08 Hydromorphone HCl (Dilaudid) 1 mg IVPUSH Q2H PRN PRN Reason: Pain Stop: 04/24/17 10:03 Last Admin: 04/23/17 20:06 Dose: 1 mg Hydroxyzine HCl (Vistaril) 75 mg IM ONETIME ONE Stop: 04/23/17 10:10 Last Admin: 04/23/17 10:17 Dose: 75 mg Tranexamic Acid 740 mg/ Sodium (Chloride) 57.4 mls @ 229.6 mls/hr IV Q3H RON Stop: 04/23/17 10:59 Last Admin: 04/23/17 07:55 Dose: 229.6 mls/hr Ketamine HCl 100 mg/ Sodium (Chloride) 100 mls @ 15 mls/hr IV ASDIRECTED [facility] Stop: 04/23/17 10:00 Cefazolin Sodium 2 gm/ Sodium (Chloride) 50 mls @ 100 mls/hr IV ONETIME ONE Stop: 04/23/17 07:59 Last Admin: 04/23/17 07:15 Dose: 100 mls/hr Propofol (Diprivan 100 Ml) Confirm Administered Dose 100 mls @ as directed .ROUTE .STK-MED ONE Stop: 04/23/17 07:17 Acetaminophen 1,000 mg/ Premix 100 mls @ 400 mls/hr IV NOW ONE Stop: 04/23/17 10:44 Last Admin: 04/23/17 10:32 Dose: 400 mls/hr Cefazolin Sodium 1 gm/ Sodium (Chloride) 50 mls @ 100 mls/hr IV Q8H [facility] Stop: 04/24/17 02:44 Last Admin: 04/23/17 16:31 Dose: Not Given Cefazolin Sodium/Dextrose 1 gm (/ Premix) 50 mls @ 100 mls/hr IV Q8H [facility] Stop: 04/24/17 06:59 Last Admin: 04/24/17 06:46 Dose: 100 mls/hr Ketamine HCl (Ketalar) 25 mg IV ONETIME ONE Stop: 04/23/17 07:46 Last Admin: 04/23/17 12:18 Dose: Not Given Naloxone HCl (Narcan) 0.2 mg IVPUSH ONETIME PRN PRN Reason: Oversedation Stop: 04/23/17 23:00 Neostigmine Methylsulfate (Neostigmine) Confirm Administered Dose 5 mg .ROUTE .STK-MED ONE Stop: 04/23/17 07:17 Ondansetron HCl (Zofran) Confirm Administered Dose 4 mg .ROUTE .STK-MED ONE Stop: 04/23/17 07:17 Oxycodone HCl (Oxycodone) 10 mg PO Q4H PRN PRN Reason: Pain Stop: 04/24/17 10:03 Last Admin: 04/24/17 08:32 Dose: 10 mg Povidone Iodine (Betadine 10% Soln) Confirm Administered Dose 1 ml .ROUTE .STK- MED ONE Stop: 04/23/17 06:48 Last Admin: 04/23/17 08:17 Dose: 1 ml Rocuronium [place] (Zemuron) Confirm Administered Dose 50 mg .ROUTE .STK-MED ONE Stop: 04/23/17 07:17 Senna (Senna) 8.6 mg PO BID PRN PRN Reason: Constipation Succinylcholine Chloride (Quelicin) Confirm Administered Dose 200 mg .ROUTE .STK -MED ONE Stop: 04/23/17 07:17 Thrombin (Thrombin-Jmi) Confirm Administered Dose 15,000 unit .ROUTE .STK-MED ONE Stop: 04/23/17 06:48 Last Admin: 04/23/17 08:17 Dose: 10,000 unit Vancomycin HCl (Vancomycin) Confirm Administered Dose 1 gm .ROUTE .Glycominds-Flipter ONE Stop: 04/23/17 08:36 Last Admin: 04/23/17 08:38 Dose: 1 gm - Exam General: Reports: Alert, Oriented Back Exam: Reports: Normal Inspection, Full Range of Motion Extremities: Normal Inspection, Normal Range of Motion, No Pedal Edema, Normal Capillary Refill Skin: Reports: Warm, Dry, Intact Wound/Incisions: Reports: Healing Well, Dressing Dry and Intact Neurological: Reports: No New Focal Deficit, Strength Equal Bilateral, Reflexes Equal Bilateral Psy/Mental Status: Reports: Alert *Q Meaningful Use (DIS) - VTE *Q VTE Criteria *Q: - Stroke *Q Stroke Criteria *Q: - AMI *Q AMI Criteria *Q:
[2017-04-25] MEDS: Pantoprazole 40 MG Tab.CR PO SCH (08:30)
[2017-04-25] MEDS: Cholecalciferol (Vitamin D3) 1,000 Unit Tab PO SCH (09:45)
[2017-04-25] MEDS: Aspirin 81 MG Tab.EC PO SCH (09:45)
[2017-04-25] MEDS: Fish Oil/Omega-3 Fatty Acids 1 Gm Cap PO SCH (09:45)
[2017-04-25] MEDS: Gabapentin 300 MG Cap PO SCH (09:45)
[2017-04-25] MEDS: FLUoxetine 10 MG Cap PO SCH (09:45)
[2017-04-25] MEDS: VERIFY SCOPOLAMINE PATCH TOP SCH (09:47)
[2017-04-25] MEDS: Sennosides 8.6 MG Tab PO SCH (09:47)
[2017-04-25] MEDS: Atenolol 25 MG Tab PO SCH (09:48)
[2017-04-25] MEDS: valACYclovir 1,000 MG Tab PO SCH (09:53)
[2017-04-25] MEDS ORDERED: Polyethylene Glycol 3350 Powder 17 GM Packet PO ONE (11:45)
[2017-04-25] MEDS ORDERED: Bisacodyl 10 MG Supp RECTAL ONE (14:30)
[2017-04-25] MEDS ORDERED: Sodium Phosphate,Monobasic/Sodium Phosphate,Dibasic Enema 133 ML Bottle RECTAL ONE (15:00)
[2017-04-25 15:11] VITALS: BP 114/30
== END 2017-04-25 17:30 | disposition home or self-care (01) | DRG 460 ==
LOC: JP.MS 05:18 → JP.SDS 05:18 → EDSTATUS 07:30 → JP.MS 10:00
PROVIDERS: ADMIT Orthopaedic Surgery; ATTEND Orthopaedic Surgery
PROC: 0SG00AJ Fusion of Lumbar Vertebral Joint with Interbody Fusion Device, Posterior Approach, Anterior Column, Open Approach (ICD-10-PCS; principal; 2017-04-23)
PROC: 01NB0ZZ Release Lumbar Nerve, Open Approach (ICD-10-PCS; 2017-04-23)
DX: M48.062 Spinal stenosis, lumbar region with neurogenic claudication (principal); D68.51 Activated protein C resistance; M43.16 Spondylolisthesis, lumbar region; M54.16 Radiculopathy, lumbar region; I10 Essential (primary) hypertension; I25.10 Atherosclerotic heart disease of native coronary artery without angina pectoris; Z95.5 Presence of coronary angioplasty implant and graft; E78.5 Hyperlipidemia, unspecified; F41.1 Generalized anxiety disorder; K21.9 Gastro-esophageal reflux disease without esophagitis; Z87.891 Personal history of nicotine dependence; Z79.82 Long term (current) use of aspirin; Z88.8 Allergy status to other drugs, medicaments and biological substances
CPT/HCPCS: 36415; 76001; 86850; 86900; 86901; 94762; 97110-GP; 97116-GP; 97162-GP; 97165-GO; 97530-GP; A9270-GY; C1713; C1776; J0131; J0171; J0330; J0690; J0735; J1100; J1170; J1720; J1885; J2405; J2710; J2795; J3010; J3370; J3410; J3490; J7030; J7050; J7120